=== PATIENT | female | born 1985 | race Caucasian/White ===

== ENCOUNTER 2023-08-07 09:15 | Inpatient (IN) | payer SELFPAY, OTHER ==
[2023-08-07] VITALS (15 sets, daily range): BP systolic 103–123; BP diastolic 56–76; PULSE 54–66; RESP 16–18; TEMP 35.9–36.9; O2SAT 96–100; BMI 39.3
[2023-08-07] MEDS: Lactated Ringers 1,000 ML 999 ML IV (10:30)
[2023-08-07 10:50] LABS: Absolute Lymphocyte Count 1.63 X10^3/uL (0.83-4.51); Absolute Neutrophil Count 3.9 X10^3/uL (2.0-7.7); Basophil# 0.02 X10^3/uL; Basophil% 0.3 % (0-1); Eosinophil# 0.03 X10^3/uL; Eosinophils% 0.5 % (0-5); Hematocrit 34.3 % (37-47); Hemoglobin 11.3 g/dL (12.0-15.0); Lymphocyte # 1.63 X10^3/ul (0.83-4.51); Lymphocyte % 26.8 % (19-41); Mean Corp Hgb Conc 32.9 g/dL (32-36); Mean Corpuscular Hgb 32.3 pg (27.0-32.0); Monocyte# 0.48 X10^3/uL; Monocyte% 7.9 % (0-10); NRBC Flagged by Analyzer 0 % (0-5); Neutrophil # 3.88 X10^3/uL (2.7-7.7); Neutrophil % 63.7 % (47-70); Platelet Count 234 K/mm3 (150-450); RBC Distribution Width CV 13.5 % (11.6-14.6); RBC Distribution Width SD 47.9 fl (35.1-43.9); White Blood Count 6.1 K/mm3 (4.4-11.0)
[2023-08-07] MEDS: Acetaminophen 500 MG Tablet 1000 MG PO ×3 (10:57→23:57)
[2023-08-07 11:04] LABS: Bedside Glucose 72 mg/dL (74-106)
[2023-08-07 11:24] LABS: Syphilis Antibodies Non-reactive
[2023-08-07] MEDS: Lactated Ringers 1,000 ML 150 ML IV (11:41)
[2023-08-07] MEDS: Sodium Citrate/Citric Acid 30 ML UDC PO (11:53)
--- NOTE | 2023-08-07 12:14 | HP.PCM.OB_ITS ---
HPI - General General Date of Admission: 08/07/23 Date of Service: 08/07/23 HPI Narrative KEVEN MORALES, is a 37 F who presents for repeat . Maternal Data Information Final GERALDINE: 08/14/23 Gestational age: 39 weeks. [facility] Medical History (Updated 08/07/23 @ 12:[address] Mag Truong MD) Gestational diabetes Home Medications insulin NPH isoph U-100 human 100 unit/mL (3 mL) subcutaneous pen (Humulin N NPH U-100 Insulin KwikPen) 8 unit subcut DAILY diabetes 08/07/23 [History Last Taken 08/06/23 08:00] insulin NPH isoph U-100 human 100 unit/mL (3 mL) subcutaneous pen (Humulin N NPH U-100 Insulin KwikPen) 12 unit subcut QPM diabetes 08/07/23 [History Last Taken 08/06/23 21:00] Allergy/AdvReac Type Severity Reaction Status Date / Time No Known Allergies Allergy Verified 08/07/23 10:47 Social History Smoking Status: Never smoker History Elective abortions Hx Para 8 Spontaneous abortions Hx # Term Pregnancies Ectopic pregnancies Hx # Pregnancies Multiple births # of living children Vital Signs Vital Signs Vital Signs: 08/07/23 11:23 Temperature 98.2 F Temperature Source Oral Pulse Rate 64 Respiratory Rate 16 Blood Pressure 116/69 Blood Pressure Mean 84 Blood Pressure Source Monitor Blood Pressure Position Semi-Fowlers Blood Pressure Location Right Arm Pulse Ox 100 Oxygen Delivery Method Room Air Weight Weight: 251 lb 4 oz Body Mass Index (BMI) 39.3 Physical Exam Const alert, oriented x3 and no apparent distress Chest inspection of chest normal GI soft to palpation, non-tender and non-distended Inspection: gravid Extremity no calf tenderness Labs Labs Labs: Blood Type A POSITIVE Antibody Screen NEGATIVE Hct 34.3 % (37-47) L Hgb 11.3 g/dL (12.0-15.0) L Syphilis Total Ab Non-reactive Assessment & Plan (1) Previous section: COMMENT: @39 weeks (2) Request for sterilization: (3) Gestational diabetes: QUALIFIERS: Gestational diabetes mellitus control: insulin- controlled Trimester: third trimester Qualified Code(s): O24.414 - Gestational diabetes mellitus in , insulin controlled PLAN: Plan Admit to L&D MOD - repeat . Patient counseled on R/B/A and informed consent signed. Sterilization request - discussed R/B/A including risks of failure & regret. Will proceed with bilateral salpingectomy.
--- NOTE | 2023-08-07 12:19 | EX.PCM.OBRPT ---
Maternal Data Information Final GERALDINE: 08/14/23 Gestational age: 39 weeks Details Operative Information Date of Procedure: 08/07/23 Pre-Operative Diagnosis: (1) Prior section (2) Sterilization request Post-Operative Diagnosis: Same Indications for : Repeat Elective and Desires elective sterilization Indications Narrative: The patient was taken to the operating room where spinal anesthesia was placed & found to be adequate. She was prepped and draped in the dorsal supine position with a leftward tilt. A Pfannenstiel skin incision was made approximately 2 cm above the symphysis pubis and carried through to the underlying fascia with the scalpel. The fascia was incised incised in the midline and extended laterally with the Lloyd scissors. The rectus muscles were in the midline and the peritoneum was entered carefully and bluntly. The peritoneal incision was stretched and the bladder blade was inserted. Vesicouterine peritoneum was tented up, incised & then bladder flap created gently. The uterine incision was made in a low transverse fashion with the scalpel and extended superiorly and inferiorly with blunt dissection. The 's head was brought to the incision in the flexed position and delivered without difficulty. The head was gently guided to allow delivery of the anterior and posterior shoulders. The body then delivered with fundal pressure in the standard fashion. The 3VC cord was clamped and cut in delayed fashion. The was handed off to the waiting wafer fab technician. The placenta was delivered with fundal massage and gentle traction in the standard fashion. The uterus was exteriorized and cleared of clots and debris. The uterine incision was closed with #1 Vicryl suture in a running locked fashion. Monocryl suture was used in an imbricating fashion. The incision was examined and was found to be hemostatic. The uterus was returned to the abdominal cavity. Attention was turned to the fallopian tubes. The right fallopian tube was grasped, cauterized and ligated using the ligasure. Excellent hemostasis was obtained. Ced was placed over the hemostatic tubal ligation site. Then the left fallopian tube was grasped, cauterized and ligated using the ligasure. Excellent hemostasis was obtained. Ced was placed over the hemostatic tubal ligation site. After irrigating Ced was placed over the uterine incision as some areas were denuded (but hemostatic). The rectus muscle was examined and any bleeding was Bovie cauterized. The fascia was closed with PDS suture in a running standard fashion. The subcutaneous tissue was examining and any bleeding was Bovie cauterized. The subcutaneous tissue was reapproximated with interrupted sutures. The skin was closed in a subcuticular fashion by the MISSION COORDINATOR while I was present in the labor & delivery unit. The remainder of the procedure was performed by me with assistance. All sponge, lap, and needle counts were correct. The patient was taken to her room for recovery in a stable condition. Classification: Scheduled Procedure Type: tubal ligation criminal attorney #1: Michael Holt Type of Anesthesia: Spinal Antibiotic Given: Ancef 2 grams IV x1 Drain: Grajeda to straight drain Estimated Blood Loss: 800ml Fluids Replaced: 1650ml Procedure Start Time: 12:51 Procedure Stop Time: 13:48 Findings Description of Procedure: Normal maternal uterus and adnexa Presentation: Positive for Vertex Amniotic Membrane Rupture Type: Artificial Amniotic Fluid Description: Clear Placental Delivery Description: Manual Removal Placenta Disposition: [facility] Specimen(s) Sent to Pathology: bilateral fallopian tubes Cord Vessel Description: 3 Vessels Cord Entanglement: None A Gender: Female (weight = 3240g) (1 minute): 9 (5 minute): 9 Delayed Cord Clamping: Yes Complications Complications: none
[2023-08-07] MEDS: Cefazolin 2 GM in 0.9% Normal Saline (100mL Bag) 100 ML IV (12:43)
--- NOTE | 2023-08-07 12:57 | FALS_PTH ---
PATIENT: KEVEN MORALES LOC: [facility] U#:[id number] AGE/SX: 37/F ROOM: WP004 RE08/07/[address]: Dr. Mag Truong MD : 1985 BED: 1 DIS: 08/09/2023 SPEC #: [id number] RECD: 08/07/23 14:58 STATUS: JANET REGabriel #: [id number] REGIS: 08/07/23 12:[address]: Mag Truong DEPT: SURGICAL PATHOLOGY RECD BY: Roma Warren ENTERED: 08/08/23 10:03 SP TYPE: FALL TUBES OTHR DR: Dr. Jamin Garcia DO Tissues: Fallopian tube Procedures: Surgery Specimen Level II HEADER OPERATION: Tubal ligation PRE-OP DIAGNOSIS: Sterilization TISSUE SUBMITTED: Fallopian tubes, suture in right MICROSCOPIC DIAGNOSIS Right fallopian tube, salpingectomy: Complete cross-section of fallopian tube. Benign paratubal cyst. Left fallopian tube, salpingectomy: Complete cross-section of fallopian tube with no pathologic change. AM:won 08/11/2023 MICROSCOPIC DESCRIPTION Slides are reviewed. GROSS DESCRIPTION Received in fixative is one container labeled with the patient's name and designated bilateral fallopian tubes, suture in right. The specimen consists of bilateral fallopian tubes including fimbrial ends each measuring 8.0 cm in length 1.0 cm in diameter. Sections reveal unremarkable cut surfaces. Gaming Commissioner sections are submitted in two cassettes as follows: 1 - right fallopian tube, 2 - left fallopian tube. / BRI:won 08/08/2023 TC:4 CPT: 87254 x2
[2023-08-07] MEDS: Oxytocin 15 Units/NS 250ml 15 UNITS/250 ML IV.SOLN 83 UNITS IV (14:05)
[2023-08-07] MEDS: Ketorolac 30 MG/ML Syringe IV ×2 (15:41→22:29)
[2023-08-07 16:02] LABS: Bedside Glucose 85 mg/dL (74-106)
[2023-08-08 01:00] VITALS: BP 94/64; PULSE 70; RESP 16; TEMP 35.9; O2SAT 99
[2023-08-08] MEDS: Enoxaparin 40 MG/0.4 ML Syringe SC (03:18)
[2023-08-08] MEDS: Ketorolac 30 MG/ML Syringe IV ×2 (04:32→10:08)
[2023-08-08 04:35] VITALS: BP 91/48; PULSE 67; RESP 16; TEMP 36.2; O2SAT 99
[2023-08-08 04:53] LABS: Hematocrit 27.9 % (37-47); Hemoglobin 9.4 g/dL (12.0-15.0); Mean Corp Hgb Conc 33.7 g/dL (32-36); Mean Corpuscular Hgb 33.3 pg (27.0-32.0); Mean Corpuscular Volume 98.9 fL (81-99); Mean Platelet Vol. 9.7 fl (6.2-12.0); Platelet Count 166 K/mm3 (150-450); RBC Distribution Width CV 13.3 % (11.6-14.6); RBC Distribution Width SD 48.9 fl (35.1-43.9); Red Blood Count 2.82 M/mm3 (4.2-5.4)
[2023-08-08] MEDS: Acetaminophen 500 MG Tablet 1000 MG PO ×3 (06:23→17:37)
[2023-08-08 06:26] LABS: Bedside Glucose 111 mg/dL (74-106)
[2023-08-08 08:40] VITALS: BP 87/45; PULSE 73; RESP 16; TEMP 36.3
[2023-08-08] MEDS: Senna/Docusate Sodium 1 Tablet PO (10:07)
[2023-08-08] MEDS: 0.9% Saline Lock 10 ML Syringe IV (10:08)
--- NOTE | 2023-08-08 13:12 | PN.OBGYN_ITS ---
Subjective Subjective Pain well controlled, average lochia. Tolerateing regular diet Objective Data Objective Data Vital Signs: Vital Signs Temp Pulse Resp BP Pulse Ox O2 Del Method O2 Flow Rate 97.4 F L 73 16 87/45 L 99 Room Air 100 08/08/23 08:40 08/08/23 08:40 08/08/23 08:40 08/08/23 08:40 08/08/23 04:35 08/08/23 04:35 08/07/23 15:32 Oxygen Flow Rate (L/min) 100 Oxygen Delivery Method Room Air Weight: 113.965 kg Body Mass Index (BMI) 39.3 Intake & Output: Intake and Output for Last 24 Hours 08/06/23 08/07/23 08/08/23 23:59 23:59 23:59 Intake Total 2860 / 2860 Output Total 1800 / 1800 700 / 700 Balance 1060 / 1060 -700 / -700 Lab / Micro Data 08/08/23 04:45 Labs: Laboratory Results - last 24 hr 08/07/23 15:20: POC Glucose 85 08/08/23 04:45: WBC 7.0, RBC 2.82 L, Hgb 9.4 L, Hct 27.9 L, MCV 98.9, MCH 33.3 H , MCHC 33.7, RDW Std Deviation 48.9 H, RDW Coeff of [place] 13.3, Plt Count 166, MPV 9.7 08/08/23 05:57: POC Glucose 111 H Physical Exam Const alert General Appearance: cooperative GI GI Narrative: soft, moderate distention, fundus firm, appropriately tender. Abdominal bandage clean dry and intact Assessment & Plan (1) delivery delivered: PLAN: POD#1 s/p repeat c/s and tubal sterilization. Doing well mild acute blood loss anemia, recheck CBC in am and doing well likely d/c home tomorrow
[2023-08-08 14:00] VITALS: BP 99/56; PULSE 78; RESP 16; TEMP 36.3
[2023-08-08] MEDS: Ibuprofen 600 MG Tablet PO ×2 (15:58→22:10)
[2023-08-08 20:04] VITALS: BP 108/65; PULSE 66; RESP 16; TEMP 36.5; O2SAT 96
[2023-08-09] MEDS: Acetaminophen 500 MG Tablet 1000 MG PO ×2 (00:01→05:58)
[2023-08-09] MEDS: Enoxaparin 40 MG/0.4 ML Syringe SC (01:47)
[2023-08-09 01:49] VITALS: BP 93/44; PULSE 74; RESP 16; TEMP 36.1; O2SAT 97
[2023-08-09] MEDS: Ibuprofen 600 MG Tablet PO ×2 (04:04→10:09)
[2023-08-09 04:15] LABS: Hematocrit 26.5 % (37-47); Hemoglobin 8.8 g/dL (12.0-15.0); Mean Corp Hgb Conc 33.2 g/dL (32-36); Mean Corpuscular Hgb 32.8 pg (27.0-32.0); Mean Corpuscular Volume 98.9 fL (81-99); Mean Platelet Vol. 9.7 fl (6.2-12.0); Platelet Count 162 K/mm3 (150-450); RBC Distribution Width CV 13.7 % (11.6-14.6); RBC Distribution Width SD 49.1 fl (35.1-43.9); Red Blood Count 2.68 M/mm3 (4.2-5.4); White Blood Count 9.1 K/mm3 (4.4-11.0)
--- NOTE | 2023-08-09 08:35 | DS.PCM_ITS ---
Providers Date of Admission: 08/07/23 Primary Care Physician: Dr. Jamin Garcia DO Reason For Visit: REPEAT Diagnosis Discharge Diagnosis (1) delivery delivered: Status: Acute Code(s): O82 - Encounter for delivery without indication (2) Gestational diabetes: Status: Acute Code(s): O24.419 - Gestational diabetes mellitus in , unspecified control Qualifiers: Gestational diabetes mellitus control: insulin-controlled Trimester: third trimester Qualified Code(s): O24.414 - Gestational diabetes mellitus in , insulin controlled (3) Request for sterilization: Status: Acute Code(s): Z30.2 - Encounter for sterilization (4) Previous section: Status: Acute Code(s): Z98.891 - History of uterine scar from previous surgery Plan POD 2 Repeat C/S with BTL Medications at Discharge Home Medications acetaminophen 500 mg tablet 1,000 mg (2 x 500 mg) PO Q6 #0 tabs 08/09/23 ibuprofen 600 mg tablet 600 mg PO Q6H #0 tabs 08/09/23 sennosides 8.6 mg-docusate sodium 50 mg tablet (Stool Softener-Stimulant Laxative) 1 - 2 tab PO DAILY #0 tabs 08/09/23 Hospital Course Operations section Summary of Care Provided Minutes Spent on Discharge: 25 Hospital Course: Repeat section with bilateral tubal ligation. Hospital course was uneventful. Physical Exam Narrative Patient seen at bedside. Ambulating and voiding without difficulty. without difficulty. Desires discharge home. Const alert and no apparent distress General Appearance: cooperative and comfortable Exam Limitations: no limitations HEENT normocephalic Eyes General Eye: normal appearance of both eyes Neck full ROM General: normal visual inspection Chest Chest: symmetrical chest wall rise Resp normal respiratory effort and normal air movement Effort and Inspection: symmetric chest movement Auscultation: clear to auscultation bilaterally Cardio regular rate and regular rhythm GI normal to inspection, nondistended, normoactive bowel sounds Back/Spine normal ROM Extremity full ROM and no calf tenderness General Extremity: normal exam except as noted Skin no rashes or lesions noted Neuro CN's II-XII intact bilaterally Psych mental status grossly normal Weight / BMI Weight Weight: 251 lb 4 oz Body Mass Index (BMI) 39.3 ABG / Lab / Microbiology Data 08/09/23 04:10 Laboratory: Laboratory Results - last 24 hr 08/09/23 04:10: WBC 9.1, RBC 2.68 L, Hgb 8.8 L, Hct 26.5 L, MCV 98.9, MCH 32.8 H , MCHC 33.2, RDW Std Deviation 49.1 H, RDW Coeff of [place] 13.7, Plt Count 162, MPV 9.7 D/C Instructions Discharge Diet: No restrictions May resume sexual activity in: 6-8 weeks Weight Bearing Status: Weight bearing as tolerated Lifting Restrictions: 20 lbs Call your doctor if your incision/area has: Continuous Slow Oozing, Increased Pain/ Swelling, Increased Redness, Foul Smelling Discharge and Swelling at the incision site Call your doctor if you observe: Fever of 101 or Higher, Inability to urinate, Using more than 1 pad per hour, Shortness of breath, Chest pain, Calf discomfort and Uncontrolled pain Remove Dressing in: 5 days Cleanse incision/area with: Soap & Water and Keep Dressing Clean & Dry When: 1 week in office for incision check or sooner if needed 6 weeks Meaningful Use Info Meaningful Use Diagnoses (Choose all that apply): None applicable Discharge Plan Admission Admit Date/Time: 08/07/23 09:15 Primary Reason for Your Visit: Repeat Section Attending Provider: Mag Truong Primary Care Provider: Jamin Garcia Discharge Orders/Prescriptions Prescriptions: New sennosides-docusate sodium [Stool Softener-Stimulant Laxat] 8.6-50 mg Tablet 1 - 2 tab PO DAILY Qty: 0 0RF acetaminophen 500 mg Tablet 1,000 mg PO Q6 Qty: 0 0RF ibuprofen 600 mg Tablet 600 mg PO Q6H Qty: 0 0RF Discontinued Humulin N NPH Insulin KwikPen 100 unit/mL (3 mL) insulin pen 8 unit subcut DAILY Humulin N NPH Insulin KwikPen 100 unit/mL (3 mL) insulin pen 12 unit subcut QPM Referrals / Follow Up: Jamin Garcia DO [Primary Care Provider] - Disposition Disposition (needs filled in before D/C Order can be placed): Home, Self Care
[2023-08-09 08:50] VITALS: BP 104/61; PULSE 80; RESP 16; TEMP 36.4
[2023-08-09] MEDS: Senna/Docusate Sodium 1 Tablet PO (10:10)
[2023-08-09 18:03] LABS: Pathology Specimen OB SEE PATHOLOGY REPORT
== END 2023-08-09 10:25 | disposition home or self-care (01) | DRG 784 ==
PROVIDERS: Obstetrics & Gynecology; Admitting Provider Obstetrics & Gynecology; PCP Family Medicine; Visit Provider Obstetrics & Gynecology
PROC: 10D00Z1 Extraction of Products of Conception, Low, Open Approach (ICD-10-PCS; CPT 59514; principal; 2023-08-07 11:45)
DX: O24.424 Gestational diabetes mellitus in childbirth, insulin controlled (principal); D62 Acute posthemorrhagic anemia; Z30.2 Encounter for sterilization; Z37.0 Single live birth; Z3A.39 39 weeks gestation of pregnancy; O90.81 Anemia of the puerperium; O26.23 Pregnancy care for patient with recurrent pregnancy loss, third trimester; O34.219 Maternal care for unspecified type scar from previous cesarean delivery
CPT/HCPCS: 59025; 59050; 82962; 85025; 85027; 86780; 86850; 86900; 86901; 88302; 99221; 99252; J7120; A4216; G0378; G0463; J2405